=== PATIENT | female | born 1995 | race Caucasian/White ===

== ENCOUNTER 2020-08-26 21:32 | Outpatient (REF) | payer OTHER, SELFPAY ==
[2020-08-31 03:59] LABS: Patient Race White; SARS-CoV-2 RNA Detected (Undetected); SARS-CoV-2 Specimen Source Nasal
== END 2020-08-26 21:52 ==
LOC: NCHCN 21:32
PROVIDERS: PCP Nurse Practitioner Family; Visit Provider Nurse Practitioner Family
DX: Z20.828 Contact with and (suspected) exposure to other viral communicable diseases (principal)
CPT/HCPCS: U0003

== ENCOUNTER 2022-07-31 15:36 | Outpatient (REF) | payer BC, SELFPAY ==
[2022-07-31 17:19] LABS: TSH (W/Ref FT4) 1.37 uIU/mL (0.36-3.74)
== END 2022-07-31 15:37 | disposition home or self-care (01) ==
LOC: NCHCN 15:36
PROVIDERS: Visit Provider Nurse Practitioner Family
DX: L65.9 Nonscarring hair loss, unspecified (principal)
CPT/HCPCS: 84443

== ENCOUNTER 2022-09-15 12:17 | Outpatient (REF) | payer BC, SELFPAY ==
--- NOTE | 2022-09-15 11:30 | PAPFT_PTH ---
PATIENT: Tracy Petty LOC: NCN #:[id number] AGE/SX: 26/F ROOM: RE09/15/[address]: Antonia Bunn : 1995 BED: DIS: 09/15/2022 SPEC #: [id number] RECD: 09/16/22 13:02 STATUS: TOMA REValarie #: [id number] LAVELL: 09/15/22 11:[address]: Antonia Bunn DEPT: [facility] Cytology RECD BY: Daisy Johnson ENTERED: 09/16/22 13:02 SP TYPE: PAPFT MEDARDO DR: Unknown,Unknown Tissues: 1 - CX/ENDOCX FOR PAP SMEARS Procedures: PAP THIN PREP/[facility] Screening Comments: [id number]
== END 2022-09-15 12:18 | disposition home or self-care (01) ==
LOC: NCHCN 12:17
PROVIDERS: Visit Provider Nurse Practitioner Family
DX: Z00.00 Encounter for general adult medical examination without abnormal findings (principal); Z12.4 Encounter for screening for malignant neoplasm of cervix
CPT/HCPCS: 88142

== ENCOUNTER 2023-03-26 12:40 | Outpatient (REF) | payer BC, SELFPAY ==
[2023-03-26 12:53] LABS: HCT 46.6 % (36.0-46.0); HGB 15.7 g/dL (11.2-15.7); MCH 29.1 pg (27.0-33.0); MCHC 33.7 % (32.0-36.0); MCV 87 fL (80-95); MPV 10.1 fL (8.0-11.0); Platelet Count 306 10^3/uL (130-400); RBC 5.39 10^6/uL (3.93-5.22); RDW 11.9 % (11.7-14.6); RDW-SD 37.6 fL; WBC 10.44 10^3/uL (4.4-10.8)
[2023-03-26 13:29] LABS: ALT 35 U/L (14-59); AST 17 U/L (15-37); Albumin 3.8 g/dL (3.4-5.0); Alkaline Phosphatase 83 U/L (46-116); Anion Gap 8.1 mmol/L (3-11); BUN 13 mg/dL (7-18); Bilirubin, Total 0.4 mg/dL (0.2-1.0); CO2 26.9 mmol/L (21.0-32.0); CREATININE 0.7 mg/dL (0.55-1.02); Calculated LDL 90 mg/dL (<100); Chloride 104 mmol/L (98-107); Cholesterol 145 mg/dL (<200); Estimated GFR 123.01 (mL/min/1.73m2); Glucose 95 mg/dL (74-106); HDL Cholesterol 44 mg/dL (40-60); Potassium 4.1 mmol/L (3.5-5.1); Sodium 139 mmol/L (136-145); Total Protein 7.6 g/dL (6.4-8.2); Triglyceride 55 mg/dL (<150)
[2023-03-26 13:49] LABS: FREE T4 2.09 ng/dL (0.76-1.46)
[2023-03-26 14:35] LABS: Lab Add On Test DONE
[2023-03-26 14:58] LABS: TSH 0.01 uIU/mL (0.36-3.74)
[2023-03-26 22:05] LABS: T3,Free 9.1 pg/mL (2.8-5.3)
== END 2023-03-26 12:41 | disposition home or self-care (01) ==
LOC: LBN 12:40
PROVIDERS: PCP Nurse Practitioner Family; Visit Provider Nurse Practitioner Family
DX: L65.9 Nonscarring hair loss, unspecified (principal); R63.5 Abnormal weight gain; N92.6 Irregular menstruation, unspecified; E66.8 Other obesity; Z68.41 Body mass index [BMI] 40.0-44.9, adult; R79.89 Other specified abnormal findings of blood chemistry
CPT/HCPCS: 80053; 80061; 85027; 83036; 84439; 84443; 84481

== ENCOUNTER 2024-05-12 13:29 | Outpatient (REF) | payer OTHER, SELFPAY ==
[2024-05-12 21:36] LABS: TSH (W/Ref FT4) 1.66 uIU/mL (0.36-3.74)
== END 2024-05-12 13:30 | disposition home or self-care (01) ==
LOC: LBN 13:29
PROVIDERS: PCP Nurse Practitioner Family; Visit Provider Nurse Practitioner Family
DX: E05.90 Thyrotoxicosis, unspecified without thyrotoxic crisis or storm (principal)
CPT/HCPCS: 84443

== ENCOUNTER 2025-05-16 08:28 | Outpatient (CLI) | payer OTHER, SELFPAY ==
[2025-05-16 12:45] LABS: ALT 28 U/L (14-59); AST 16 U/L (15-37); Albumin 4.0 g/dL (3.4-5.0); Alkaline Phosphatase 94 U/L (46-116); Anion Gap 5.9 mmol/L (3-11); BUN 10 mg/dL (7-18); Bilirubin, Total 0.4 mg/dL (0.2-1.0); CO2 30.1 mmol/L (21.0-32.0); Calcium 9.0 mg/dL (8.5-10.1); Chloride 105 mmol/L (98-107); Estimated GFR 103.50 (mL/min/1.73m2); Glucose 95 mg/dL (74-106); Potassium 3.9 mmol/L (3.5-5.1); Sodium 141 mmol/L (136-145); TSH (W/Ref FT4) 1.83 uIU/mL (0.36-3.74); Total Protein 7.8 g/dL (6.4-8.2)
[2025-05-16 13:04] LABS: HCT 44.7 % (36.0-46.0); HGB 14.6 g/dL (11.2-15.7); MCH 28.5 pg (27.0-33.0); MCHC 32.7 % (32.0-36.0); MCV 87 fL (80-95); MPV 10.0 fL (8.0-11.0); Platelet Count 314 10^3/uL (130-400); RBC 5.12 10^6/uL (3.93-5.22); RDW 12.9 % (11.7-14.6); RDW-SD 41.1 fL; WBC 9.03 10^3/uL (4.4-10.8)
[2025-05-16 17:47] LABS: T3,Free 4.0 pg/mL (2.8-5.3)
[2025-05-16 19:02] LABS: Hepatitis C Ab w Rflx HCV PCR Negative (Negative)
[2025-05-16 19:09] LABS: HBs Antibody, Quant 4.1 mIU/mL (See Note); Hepatitis B Surface Antigen Negative (Negative)
[2025-05-16 19:11] LABS: HIV-1/2 Ag & Ab Screen Negative (Negative)
== END 2025-05-16 08:29 | disposition home or self-care (01) ==
PROVIDERS: PCP Nurse Practitioner Family; Referring Provider Nurse Practitioner Family; Visit Provider Nurse Practitioner Family
DX: E05.90 Thyrotoxicosis, unspecified without thyrotoxic crisis or storm (principal); Z11.59 Encounter for screening for other viral diseases; Z11.4 Encounter for screening for human immunodeficiency virus [HIV]
CPT/HCPCS: 36415; 80053; 85027; 86704; 86706; 86803; 87340; 87389; 84439; 84443; 84481

== ENCOUNTER → 2025-09-21 13:33 | Outpatient (CLI) | payer OTHER, SELFPAY ==
--- NOTE | 2025-09-21 12:00 | DI.RAD_ITS ---
Exam(s) XR WRIST LT COMPLETE EXAM: XR WRIST LT COMPLETE CLINICAL HISTORY: lt wrist pain, M25.532. TECHNIQUE: 2D digital imaging was performed. COMPARISON: No exams were available for comparison FINDINGS: 3 views No evidence of acute fracture nor carpal dislocation. There is mild negative ulnar variance noted. Scaphoid and scapholunate distance are normal. No degenerative changes nor erosions. No radiopaque foreign bodies. IMPRESSION: No acute osseous findings. Mild negative ulnar variance noted. DATA REPOSITORY: RADIATION DOSE DELIVERED:
== END ==
LOC: DI 13:33
PROVIDERS: PCP Nurse Practitioner Family; Visit Provider Nurse Practitioner Family
DX: M25.532 Pain in left wrist (principal); M24.832 Other specific joint derangements of left wrist, not elsewhere classified
CPT/HCPCS: 73110